=== PATIENT | male | born 1955 | race Caucasian/White ===

== ENCOUNTER 2017-05-06 10:26 | Day surgery (SDC) | payer OTHER ==
[2017-05-06] MEDS ORDERED: Lidocaine 2% 5 ML SDV ONE (11:10)
[2017-05-06] MEDS ORDERED: Lactated Ringers 1,000 ML IV SCH (11:10)
[2017-05-06] MEDS ORDERED: Midazolam 1 MG/ML 2 ML SDV ONE ×2 (11:10→12:31)
[2017-05-06] MEDS ORDERED: fentaNYL 100 MCG/2 ML SDV ONE ×2 (11:10→12:31)
[2017-05-06] MEDS ORDERED: Propofol 200 MG/20 ML SDV ONE ×3 (11:10→13:16)
--- NOTE | 2017-05-06 11:52 | PCM.PREANE ---
Preanesthetic Assessment - Anesthesia/Transfusion/Family Hx Anesthesia History: Prior Anesthesia Without Reaction Family History of Anesthesia Reaction: No Transfusion History: No Prior Transfusion(s) Intubation History: Unknown - Review of Systems General: No Symptoms Pulmonary: No Symptoms Cardiovascular: No Symptoms Gastrointestinal: No Symptoms Neurological: No Symptoms Other: Reports: None - Physical Assessment O2 Sat by Pulse Oximetry: 99 Respiratory Rate: 16 Vital Signs: Last Vital Signs Temp 36.4 C 05/06/17 11:00 Pulse 80 05/06/17 11:00 Resp 16 05/06/17 11:00 BP 153/75 H 05/06/17 11:00 Pulse Ox 99 05/06/17 11:00 Height: 1.73 m Weight: 86.183 kg ASA Class: 2 Mental Status: Alert & Oriented x3 Airway Class: Mallampati = 2 Dentition: Reports: Broken Tooth/Teeth (broken tooth upper right), Missing Tooth /Teeth, Caries Thyro-Mental Finger Breadths: 3 Mouth Opening Finger Breadths: 3 ROM/Head Extension: Full Lungs: Clear to Auscultation, Normal Respiratory Effort Cardiovascular: Regular Rate, Regular Rhythm - Allergies Allergies/Adverse Reactions: Allergies Allergy/AdvReac Type Severity Reaction Status Date / Time No Known Allergies Allergy Verified 05/04/17 11:16 - Blood Blood Available: No - Anesthesia Plan Pre-Op Medication Ordered: None - Acknowledgements Anesthesia Type Planned: MAC Pt an Appropriate Candidate for the Planned Anesthesia: Yes Alternatives and Risks of Anesthesia Discussed w Pt/Guardian: Yes Pt/Guardian Understands and Agrees with Anesthesia Plan: Yes PreAnesthesia Questionnaire Other HEENT History: uses reading glasses Gastrointestinal History: Reports: None Musculoskeletal History: Reports: Fracture Other Musculoskeletal History: hx of fx finger Dermatologic History: Reports: Other (See Below) (basal cell skin cancer on the nose) Other Dermatologic History: ? fungus on torso - Past Surgical History Other HEENT Surgeries/Procedures: removal of right ear canal mass GI Surgical History: Reports: Hernia, Inguinal, Other (See Below) Other GI Surgeries/Procedures: umbilical hernis repair Male Surgical History: Reports: Vasectomy - SUBSTANCE USE Smoking Status *Q: Current Every Day Smoker (1-2 ppd) Tobacco Use Within Last Twelve Months: Cigarettes Days Per Week of Alcohol Use: 7 Number of Drinks Per Day: 3 Total Drinks Per Week: 21 Recreational Drug Use History: No - HOME MEDS Home Medications: Home Meds Essiac Tonic Caps 1 cap PO DAILY 05/04/17 [History] - CURRENT (IN HOUSE) MEDS Current Meds: Current Medications Hydrocodone Bitart/Acetaminophen (Norman 325-5 Mg) 1 tab PO Q4H PRN PRN Reason: Pain Bupivacaine HCl/Epinephrine Bitart (Marcaine 0.25%/Epinephrine 1:200,000) 20 ml INJECT ONETIME ONE Stop: 05/06/17 12:01 Cefazolin Sodium/Dextrose 2 gm (/ Premix) 50 mls @ 100 mls/hr IV ONETIME ONE Stop: 05/06/17 12:29 Lactated Ringer's (Ringers, Lactated) 1,000 mls @ 125 mls/hr IV ASD[facility]ED [facility] Last Admin: 05/06/17 11:25 Dose: 125 mls/hr Discontinued Medications Fentanyl (Sublimaze) Confirm Administered Dose 100 mcg .ROUTE .STK-MED ONE Stop: 05/06/17 11:11 Lidocaine (Xylocaine-Mpf 2%) Confirm Administered Dose 5 ml .ROUTE .STK-MED ONE Stop: 05/06/17 11:11 Midazolam HCl (Versed 1 Mg/Ml) Confirm Administered Dose 2 mg .ROUTE .STK-MED ONE Stop: 05/06/17 11:11 Propofol (Diprivan 20 Ml) Confirm Administered Dose 400 mg .ROUTE .STK-MED ONE Stop: 05/06/17 11:11
[2017-05-06] MEDS ORDERED: ceFAZolin 2 GM in Premix Bag 1 BAG IV ONE (12:00)
[2017-05-06] MEDS ORDERED: Acetaminophen/HYDROcodone 325-5 MG Tab PO PRN (12:00)
[2017-05-06] MEDS ORDERED: Bupivacaine 0.25%/EPINEPHrine 1:200,000 10 ML SDV INJECT ONE (12:00)
[2017-05-06] MEDS ORDERED: Rocuronium 10 MG/ML 10 ML Syringe ONE (12:31)
[2017-05-06] MEDS ORDERED: Ondansetron 4 MG/2 ML SDV ONE (12:31)
[2017-05-06] MEDS ORDERED: Dexamethasone 4 MG/ML 5 ML MDV ONE (12:31)
[2017-05-06] MEDS ORDERED: Succinylcholine/Normal Saline 200 MG/10 ML Syringe ONE (12:31)
[2017-05-06] MEDS ORDERED: Mineral Oil/Petrolatum Ophth Oint 3.5 GM Tube ONE (12:43)
--- NOTE | 2017-05-06 14:37 | PCM.POSTAN ---
POST ANESTHESIA ASSESSMENT - MENTAL STATUS Mental Status: Alert, Oriented - RESPIRATORY Respiratory Status: Respiratory Rate WNL, Airway Patent, O2 Saturation Stable - CARDIOVASCULAR CV Status: Pulse Rate WNL, Blood Pressure Stable - GASTROINTESTINAL GI Status: No Symptoms - PAIN Pain Score: 0 - POST OP HYDRATION Hydration Status: Adequate & Stable
--- NOTE | 2017-05-06 14:52 | PCM48HPAN ---
Post Anesthesia Note - EVALUATION WITHIN 48HRS OF ANESTHETIC Vital Signs in Normal Range: Yes Patient Participated in Evaluation: Yes Respiratory Function Stable: Yes Airway Patent: Yes Cardiovascular Function Stable: Yes Hydration Status Stable: Yes Pain Control Satisfactory: Yes Nausea and Vomiting Control Satisfactory: Yes Mental Status Recovered: Yes
[2017-05-06 15:03] VITALS: BP 130/87
--- NOTE | 2017-05-12 14:51 | PCM.OPNOTE ---
- General Post-Op/Procedure Note Date of Surgery/Procedure: 05/06/17 Operative Procedure(s): excision of nose lesion 2x1.5cm with frozen sections and local advancement flap closure - total area of 6cm2 Pre Op Diagnosis: nose basal cell Post-Op Diagnosis: Same Anesthesia Technique: Local, MAC Primary Surgeon: Catarina Wright Clinical Laboratory Assistant: Keira Lawson Pathology: fs negative Complications: None Condition: Good Free Text/Narrative:: [id number]
--- NOTE | 2017-05-12 20:11 | OR ---
SURGEON: KENAN SOTELO MD DATE OF PROCEDURE: 05/06/2017 PREOPERATIVE DIAGNOSIS: Basal cell carcinoma of the nose measuring 1.5 cm2. POSTOPERATIVE DIAGNOSIS: Basal cell carcinoma of the nose measuring 1.5 cm2. PROCEDURES: Excision of nose lesion 2 x 1.5 cm with frozen sections and local advancement flap closure total area of 6 cm2. PROGRAM LEAD: INDER Euceda. ANESTHESIA: Local MAC. INDICATIONS: Mr. Banks is a 61-year-old gentleman with the nose lesion that is clearly basal cell. Risks and benefits of removal with local flap closure were discussed with him and he was in agreement to proceed. Risks were including, but not limited to, bleeding, infection, damage to underlying or overlying structures, possible need for future interventions, and possible scarring. PROCEDURE IN DETAILS: After informed consent was obtained and placed on the chart, the patient was brought to the operating theater and laid in supine position. After adequate local MAC anesthesia was obtained, the area was prepped and draped, a time-out was completed to confirm side and site. Attention was then paid to local anesthesia and excision of the lesion. A 15 blade was used to dissect through the skin for a total area of 2 x 1.5 cm for excision and marked at the 12 o'clock position for frozen section. This was sent for pathology and frozen sections returned as negative. This is a basal cell. Attention was then paid to the local flap advancement closure. A V-Y advancement flap was designed from the left nasolabial fold and the total designed area plus the defect was 6 cm2. Dissection was first carried around the V-Y advancement flap laterally at the margins using a 15 blade. Dissection was then carried at the distal and proximal ends using Littler scissor dissection. Attention was then paid to freeing of the central area with spreading, with care to protect any deeper structures. This was advanced and once appropriate advancement was appreciated, meticulous hemostasis was obtained and then the wounds were closed using a deep 4-0 Monocryl stitch and a running 5- 0 Prolene for the skin. The wound was dressed with bacitracin. He tolerated this well, and all counts and needles were correct at the end of the case. FOLLOWUP INSTRUCTIONS: The patient will see us in clinic in 7 days or sooner if any problems, questions, or concerns. He was given a prescription for pain control if needed. HEGGTHE / MODL /[id number]
== END 2017-05-06 15:02 | disposition home or self-care (01) ==
LOC: MW.SDS 10:26
PROVIDERS: ATTEND Plastic Surgery
DX: C44.311 Basal cell carcinoma of skin of nose (principal); F17.210 Nicotine dependence, cigarettes, uncomplicated; Z98.52 Vasectomy status; Z98.890 Other specified postprocedural states; Z79.899 Other long term (current) drug therapy
CPT/HCPCS: 14060; 88305; 88331; J2250; J3010; J7120; 00300; J1100; J2405; J2704